=== PATIENT | female | born 1995 ===

== ENCOUNTER 2017-01-30 01:44 | Emergency (ER) | payer BC, OTHER ==
[~2017-01-30] VITALS: Ht 160 cm; Wt 102.3 kg
[2017-01-30 01:46] VITALS: BP 153/95; PULSE 91; TEMP 36.8; O2SAT 100; Ht 160 cm; Wt 102.3 kg
[2017-01-30] MEDS ORDERED: PHENAZOPYRIDINE HOME PACK 200 MG VIAL PO ONE (02:18)
[2017-01-30] MEDS ORDERED: MACROBID 100MG HOME PACK 1 EA VIAL ONE (02:18)
[2017-01-30 04:02] LABS: URINE APPEARANCE TURBID (CLEAR); URINE BILIRUBIN NEG (NEG); URINE COLOR DK YELLOW; URINE EPITHELIAL CELL AUTO >30 /lpf (0-5); URINE NITRITE NEG (NEG); URINE PH 5.5 (4.5-7.5); URINE SPECIFIC GRAVITY 1.028 (1.000-1.030); UROBILINOGEN NEG (NEG); ZZUR CULT IF INDIC CLEAN CATCH YES
[2017-01-30 04:04] LABS: MANUAL MICROSCOPIC REQUIRED? NO; REVIEW REQ? NO
--- NOTE | 2017-01-30 04:17 | EMERGENCY ROOM VISIT NOTE ---
History First contact with patient: 01:52 Chief Complaint: URINARY SYMPTOMS Stated Complaint: PAINFUL URINATION,POSSIBLE UTI History of Present Illness The patient is a 21 year old female who presents to the Emergency Room with complaints of urinary symptoms which began yesterday afternoon. The patient states that she has had dysuria, increased frequency, and a small amount of blood in her urine. The patient states that she has had UTIs in the past and this feels similar. She denies abdominal pain, back pain or fevers. She denies any abnormal vaginal discharge. Her last menstrual period was last week. Review of Systems A complete 10 point review of systems was reviewed with the patient with pertinent positives and negatives as per history of present illness. All else were negative. Social History Smoking Status: Never Smoker Housing Status: lives with roommate Occupation Status: [employer] student Physical Exam Vital Signs Date Time Temp Pulse Resp B/P (MAP) Pulse Ox O2 Delivery O2 Flow Rate FiO2 01/30/17 01:46 36.8 91 16 153/95 100 Room Air Physical Exam VITALS: Vitals are noted on the nurse's note and reviewed by myself. Vital signs stable. GENERAL: This is a 21-year-old female, in no acute distress, nondiaphoretic, well-developed well-nourished. HEART: Regular rate and rhythm without murmurs gallops or rubs. LUNGS: Clear to auscultation bilaterally without wheezes, rales or rhonchi. ABDOMEN: Soft, nontender to palpation. NEURO: Patient was alert and oriented to person place and time. Medical Decision & Procedures Laboratory Results Test 01/30/17 01:54 01/30/17 01:57 Urine Test NEG (NEG) Urine Color DK YELLOW Urine Appearance TURBID (CLEAR) Urine pH 5.5 (4.5-7.5) Urine Specific [place] 1.028 (1.000-1.030) Urine Protein 2+ (NEG) Urine Glucose (UA) NEG (NEG) Urine Ketones TRACE (NEG) Urine Occult Blood 3+ (NEG) Urine Nitrite NEG (NEG) Urine Bilirubin NEG (NEG) Urine Urobilinogen NEG (NEG) Urine Leukocyte Esterase LARGE (NEG) Urine WBC (Auto) >30 /hpf (0-5) Urine RBC (Auto) >30 /hpf (0-4) Urine Hyaline Casts (Auto) 1-5 /lpf (0-5) Urine Epithelial Cells (Auto) >30 /lpf (0-5) Urine Bacteria (Auto) 1+ (NEG) Medical Decision Differential diagnosis includes urinary tract infection, vaginal infection, among others. The patient is a 21-year-old female who presents today complaining of with urinary symptoms. Urinalysis showed blood, leukocyte esterase, white blood cells and bacteria. Culture was sent. Patient will be placed on Macrobid. She was given Pyridium for symptomatic relief. The patient reports she frequently gets yeast infections after being on antibiotics. She was given a prescription for Diflucan to be taken if this occurs. The patient was educated to return to the emergency department for any worsening of their current condition or new/concerning symptoms. She will follow up with S as needed. Medication Reconcilliation Current Medication List: was personally reviewed by me Blood Pressure Screening Patient's blood pressure: Elevated blood pressure Blood pressure disposition: Elevated BP felt to be situational Impression Primary Impression: Urinary tract infection Departure Information Referrals No Doctor, Assigned (PCP) Patient Instructions [facility] [place] Problem Qualifiers Primary Impression: Urinary tract infection Urinary tract infection type: acute cystitis Hematuria presence: with hematuria Qualified Codes: N30.01 - Acute cystitis with hematuria
== END 2017-01-30 02:10 | disposition home or self-care (01) ==
LOC: C.EDB 01:46 → C.EDA 02:10
DX: N39.0 Urinary tract infection, site not specified (principal)